=== PATIENT | male | born 1960 | race Caucasian/White ===

== ENCOUNTER 2016-12-02 00:17 | Emergency (ER) | payer OTHER ==
[~2016-12-02] VITALS: Ht 167.6 cm; Wt 78.0 kg
[~2016-12-02 00:17] MED LIST: ALBUAER3 INH; CYCL1TAB29 PO; MEDR4PAK PO; MOTR200T4 PO; SPIRCAP INH
[2016-12-02 00:19] VITALS: BP 130/72; PULSE 69; RESP 16; TEMP 98.6; O2SAT 97
[2016-12-02] MEDS ORDERED: QUET400XR PO (01:09)
[2016-12-02] MEDS ORDERED: QUET200XR PO (01:09)
[2016-12-02 01:24] LABS: AUTOMATED NEUTROPHIL # 8.3 TH/MM3 (1.8-7.7); BASOPHIL # 0.1 TH/MM3 (0-0.2); BASOPHIL % 1.1 % (0.0-2.0); EOSINOPHIL # 0.2 TH/MM3 (0-0.4); EOSINOPHIL % 1.6 % (0.0-4.0); HEMO FLAGS DIFF FINAL; LYMPH % 27.5 % (9.0-44.0); LYMPHOCYTE # 3.5 TH/MM3 (1.0-4.8); MEAN CELL VOLUME 87.3 FL (80.0-100.0); MEAN CORPUSCULAR HEMOGLOBIN 30.2 PG (27.0-34.0); MEAN CORPUSCULAR HGB CONC 34.7 % (32.0-36.0); MONO % 5.5 % (0.0-8.0); NEUT % 64.3 % (16.0-70.0); PLATELET COUNT 246 TH/MM3 (150-450); RED CELL DISTRIBUTION WIDTH 14.1 % (11.6-17.2); WHITE BLOOD COUNT 12.9 TH/MM3 (4.0-11.0)
[2016-12-02 01:27] LABS: BACTERIA, URINE RARE /hpf; BLOOD, URINE NEG (NEG); COMMENT (UR) CULT NOT INDICATED; CULTURE IF INDICATED CULT NOT INDICATED; GLUCOSE,URINE NEG (NEG); KETONE, URINE NEG (NEG); NITRITE,URINE NEG (NEG); URINE COLOR LIGHT-YELLOW (YELLW/STRAW)
[2016-12-02 01:39] LABS: ALT (GPT) 14 U/L (12-78); ANION GAP 9 MEQ/L (5-15); AST (GOT) 8 U/L (15-37); BICARBONATE 26.4 MEQ/L (21.0-32.0); BLOOD UREA NITROGEN 9 MG/DL (7-18); CHLORIDE 104 MEQ/L (98-107); GLOMERULAR FILTRATION RATE 109 ML/MIN (>89); POTASSIUM 3.6 MEQ/L (3.5-5.1); SODIUM (NA) 139 MEQ/L (136-145)
[2016-12-02 01:41] LABS: ALKALINE PHOSPHATASE 96 U/L (45-117); TOTAL BILIRUBIN ADULT 0.4 MG/DL (0.2-1.0)
--- NOTE | 2016-12-02 01:42 | PD ---
HPI Chief Complaint: Abdominal Pain Time Seen by Provider: 01:01 Travel History International Travel<30 days: No Contact w/Intl Traveler<30days: No Traveled to known affect area: No History of Present Illness HPI So 56-year-old man presents emergent from sharp lower abdominal pain. States is been worse over the past several days. He states he is stinging when he urinates sometimes has trouble going to the bathroom when he urinates. Denies any vomiting but has had nausea, is also had some chills but no definite fevers. Bowel movements are somewhat irregular, but hasn't had any real significant change. Patient also had 2 episodes of hematuria. He does have a history of some nocturia, likely voiding, and difficulty starting and hesitancy. He's never had a urinary tract infection before no history of kidney stones or prostate problems. History Past Medical History Narrative Medical COPD Diabetes Tetanus Vaccination: Unknown Influenza Vaccination: No Social History Alcohol Use: No Tobacco Use: Yes (4 cigs per day) Allergies-Medications (Allergen,Severity, Reaction): Coded Allergies: Morphine (Verified Allergy, Severe, Nausea/Vomiting, 09/22/16) Latex (Verified Adverse Reaction, Severe, Rash, 09/22/16) Reported Meds & Prescriptions Reported Meds & Active Scripts Active Proair Hfa 8.5 GM Inh (Albuterol Sulfate) 90 Mcg/Act Aer 2 Puff INH Q4-6H PRN 108 mcg/actuation Reported Seroquel XR (Quetiapine Fumarate) 400 Mg Tab 400 Mg PO HS Seroquel XR (Quetiapine Fumarate) 200 Mg Tab 200 Mg PO DAILY Review of Systems Except as stated in HPI: all other systems reviewed are Neg Physical Exam Narrative GENERAL: Well-appearing 56-year-old man, no acute distress. SKIN: Focused skin assessment warm/dry. HEAD: Atraumatic. Normocephalic. EYES: Pupils equal and round. No scleral icterus. No injection or drainage. ENT: No nasal bleeding or discharge. Mucous membranes pink and moist. NECK: Trachea midline. No JVD. CARDIOVASCULAR: Regular rate and rhythm. No murmur appreciated. RESPIRATORY: No accessory muscle use. Clear to auscultation. Breath sounds equal bilaterally. GASTROINTESTINAL: Abdomen is flat and soft. Minimal lower abdominal tenderness. MUSCULOSKELETAL: No obvious deformities. No clubbing. No cyanosis. No edema. NEUROLOGICAL: Awake and alert. No obvious cranial nerve deficits. Motor grossly within normal limits. Normal speech. Data Data Last Documented VS Vital Signs Date Time Temp Pulse Resp B/P Pulse Ox O2 Delivery O2 Flow Rate FiO2 12/02/16 00:19 98.6 69 16 130/72 97 Orders Complete Blood Count With Diff (12/02/16 01:09) Comprehensive Metabolic Panel (12/02/16 01:09) Urinalysis - C+S If Indicated (12/02/16 01:09) Iv Access Insert/Monitor (12/02/16 01:09) Ed Poc Ultrasound (12/02/16 ) Labs Laboratory Tests Test 12/02/16 12/02/16 01:00 01:16 Urine Color LIGHT-YELLOW Urine Turbidity CLEAR Urine pH 6.0 Urine Specific [place] 1.003 Urine Protein NEG mg/dL Urine Glucose (UA) NEG mg/dL Urine Ketones NEG mg/dL Urine Occult Blood NEG Urine Nitrite NEG Urine Bilirubin NEG Urine Urobilinogen LESS THAN 2.0 MG/DL Urine Leukocyte Esterase NEG Urine RBC LESS THAN 1 /hpf Urine WBC 1 /hpf Urine Bacteria RARE /hpf Microscopic Urinalysis Comment CULT NOT INDICATED White Blood Count 12.9 TH/MM3 Red Blood Count 4.70 MIL/MM3 Hemoglobin 14.2 GM/DL Hematocrit 41.0 % Mean Corpuscular Volume 87.3 FL Mean Corpuscular Hemoglobin 30.2 PG Mean Corpuscular Hemoglobin 34.7 % Concent Red Cell Distribution Width 14.1 % Platelet Count 246 TH/MM3 Mean Platelet Volume 8.5 FL Neutrophils (%) (Auto) 64.3 % Lymphocytes (%) (Auto) 27.5 % Monocytes (%) (Auto) 5.5 % Eosinophils (%) (Auto) 1.6 % Basophils (%) (Auto) 1.1 % Neutrophils # (Auto) 8.3 TH/MM3 Lymphocytes # (Auto) 3.5 TH/MM3 Monocytes # (Auto) 0.7 TH/MM3 Eosinophils # (Auto) 0.2 TH/MM3 Basophils # (Auto) 0.1 TH/MM3 CBC Comment DIFF FINAL Differential Comment Sodium Level 139 MEQ/L Potassium Level 3.6 MEQ/L Chloride Level 104 MEQ/L Carbon Dioxide Level 26.4 MEQ/L Anion Gap 9 MEQ/L Blood Urea Nitrogen 9 MG/DL Creatinine 0.74 MG/DL Estimat Glomerular Filtration 109 ML/MIN Rate Random Glucose 86 MG/DL Calcium Level 8.9 MG/DL Aspartate Amino Transf 8 U/L (AST/SGOT) Alanine Aminotransferase 14 U/L (ALT/SGPT) Albumin 3.7 GM/DL MDM Medical Decision Making Medical Screen Exam Complete: Yes Emergency Medical Condition: Yes Interpretation(s) LABS: CBC is remarkable for mild leukocytosis. CMP is unremarkable. UA is negative Differential Diagnosis Obstructive uropathy, malignancy, hematuria, infection, other Narrative Course Medical decision-making 56 human presents to the emergency Department with what sounds like hematuria and lower abdominal discomfort. He looks well. Bedside ultrasound shows no evidence of incomplete voiding. Bladder was a little bit thick but was also completely decompressed. Patient likely close outpatient follow-up with urologist. Diagnosis Primary Impression: Hematuria Additional Impression: Abdominal pain Additional Instructions: Take Tylenol as needed for abdominal pain. Follow-up with your primary doctor today this week for repeat evaluation. He probably need further evaluation by urologist evaluate for any evidence of bleeding. Med/Other Pt SpecificInfo: No Change to Meds Disposition: 01 DISCHARGE HOME Condition: Stable Manas Rojas MD Dec 02, 2016 01:42
== END 2016-12-02 02:01 | disposition home or self-care (01) ==
LOC: NEPE 00:17
DX: R31.9 Hematuria, unspecified (principal); R10.9 Unspecified abdominal pain; D72.829 Elevated white blood cell count, unspecified; J44.9 Chronic obstructive pulmonary disease, unspecified; E11.9 Type 2 diabetes mellitus without complications; F17.210 Nicotine dependence, cigarettes, uncomplicated; Z79.899 Other long term (current) drug therapy; Z88.5 Allergy status to narcotic agent
CPT/HCPCS: 80053; 81001; 85025; 99284

== ENCOUNTER 2016-12-03 13:30 | Emergency (ER) | payer OTHER ==
[~2016-12-03] VITALS: Ht 167.6 cm; Wt 80.0 kg
[~2016-12-03 13:30] MED LIST changes: -CYCL1TAB29 PO; -MEDR4PAK PO; -MOTR200T4 PO; +QUET200XR PO; +QUET400XR PO; -SPIRCAP INH
[2016-12-03 14:14] VITALS: BP 135/80; PULSE 111; RESP 19; O2SAT 97
[2016-12-03 14:20] VITALS: BP 135/80; PULSE 111; RESP 19; O2SAT 96
--- NOTE | 2016-12-03 14:22 | PD ---
HPI Chief Complaint: Psychiatric Symptoms Time Seen by Provider: 14:21 Travel History International Travel<30 days: No Contact w/Intl Traveler<30days: No Traveled to known affect area: No History of Present Illness HPI 56-year-old male with PMH of COPD presents to the ED under Bergeron act for psychiatric evaluation. According to the Bergeron act paperwork the patient called the pharmacy today asking how much Seroquel would be fatal. Additional statements made the pharmacist suspect that the patient was suicidal. The police were called and the patient was found to be in possession of 2 vials of ~ 50 pills of Seroquel. On presentation the patient denies suicidal ideation. He states that he takes 50 mg Seroquel in the morning and 300 mg at night. He states that last month he had accidentally taken more than prescribed and was worried that he may have done the same this month. He states that he was calling the pharmacist to ensure that he had not overdosed. He states that he is depressed but he has made significant changes in his life and feels more positive these days. He states that he is living in a sober house, denies alcohol or drug use. He states that he has a friend who was getting out of the hospital after a significant accident and is looking forward to seeing this friend as well as visiting family in [place] in 2 weeks. The patient was just seen yesterday with concern for hematuria. He states that he's been drinking plenty of fluids and this has nearly resolved. He denies other somatic complaints. PFSH Past Medical History Asthma: Yes Depression: Yes (manic depression) Heart Rhythm Problems: No Cardiac Catheterization: Yes (x 2) Cardiovascular Problems: Yes (CHEST PAIN, CATHS X2) High Cholesterol: Yes Congestive Heart Failure: No COPD: Yes Diabetes: Yes Diminished Hearing: No Hypertension: Yes Respiratory: Yes (COPD) Tetanus Vaccination: Never Vaccinated Past Surgical History Appendectomy: Yes Coronary Artery Bypass Graft: No Oral Surgery: Yes Tonsillectomy: Yes Social History Alcohol Use: No Tobacco Use: Yes (4 cigs per day) Substance Use: No Allergies-Medications (Allergen,Severity, Reaction): Coded Allergies: Morphine (Verified Allergy, Severe, Nausea/Vomiting, 12/03/16) Latex (Verified Adverse Reaction, Severe, Rash, 12/03/16) Reported Meds & Prescriptions Reported Meds & Active Scripts Active Proair Hfa 8.5 GM Inh (Albuterol Sulfate) 90 Mcg/Act Aer 2 Puff INH Q4-6H PRN 108 mcg/actuation Reported Seroquel XR (Quetiapine Fumarate) 400 Mg Tab 400 Mg PO HS Seroquel XR (Quetiapine Fumarate) 200 Mg Tab 200 Mg PO DAILY Review of Systems Except as stated in HPI: all other systems reviewed are Neg Physical Exam Narrative GENERAL: Well-nourished, well-developed white male in no acute distress. PSYCHIATRIC: No delusional thought processes. No hallucinations. Future oriented. Appropriately interactive. SKIN: Focused skin assessment warm/dry. HEAD: Normocephalic. EYES: No scleral icterus. No injection or drainage. PERRLA. NECK: Supple, trachea midline. No JVD or lymphadenopathy. CARDIOVASCULAR: Regular rate and rhythm without murmurs, gallops, or rubs. RESPIRATORY: Breath sounds equal and coarse bilaterally. No accessory muscle use. GASTROINTESTINAL: Abdomen soft, non-tender, nondistended. Active bowel sounds. MUSCULOSKELETAL: No cyanosis, or edema. Ambulatory with normal gait. BACK: Nontender without obvious deformity. No CVA tenderness. Data Data Last Documented VS Vital Signs Date Time Temp Pulse Resp B/P Pulse Ox O2 Delivery O2 Flow Rate FiO2 12/03/16 15:35 101 19 130/85 98 12/03/16 14:14 Room Air Orders Psych Screen (12/03/16 14:22) [facility] Medical Decision Making Medical Screen Exam Complete: Yes Emergency Medical Condition: Yes Medical Record Reviewed: Yes Differential Diagnosis Adjustment disorder versus anxiety versus bipolar versus depression versus dementia versus electrolyte disorder versus malingering versus mood disorder versus ODD versus psychosis versus PTSD versus schizophrenia versus schizoaffective disorder versus substance-induced mood disorder versus other Narrative Course 56-year-old male with PMH of COPD presents to the ED under Bergeron act for psychiatric evaluation. According to the Bergeron act paperwork the patient called the pharmacy today asking how much Seroquel would be fatal. This made the pharmacist suspect that the patient was suicidal. The police were called and the patient was found to be in possession of 2 vials of ~50 pills of Seroquel. On presentation the patient denies SI. He states that he takes 50 mg Seroquel in the morning and 300 mg at night. He states that last month he had accidentally taken more than prescribed and was worried that he may have done the same this month. He states that he called the pharmacist to ensure that he had not overdosed. H endorses depressed, but states that he feels more positive these days. He states that he is living in a sober house, denies alcohol or drug use. He is future oriented, plans to see a friend who has been hospitalized and family in the upcoming weeks. The patient was just seen yesterday with concern for hematuria. He states that he's been drinking plenty of fluids and this has nearly resolved. He denies other somatic complaints. Vitals reviewed. Exam unremarkable. Reviewed the labs from yesterday. I feel this patient could likely be discharged. I discussed the patient with Dr. Sarabia , he evaluated the patient and lifted the Bergeron act. Patient counseled to use a divided pill case for future doses of Seroquel. The patient is stable and discharged home. Diagnosis Primary Impression: Encounter for medical screening examination Referrals: Primary Care Physician Psychiatrist Additional Instructions: Resume at home medications as prescribed. Follow-up with your psychiatrist and primary care provider as discussed. Return to the ED for any urgent or emergent medical condition. Disposition: 01 DISCHARGE HOME Condition: Stable Nory Carrero Dec 03, 2016 14:22
--- NOTE | 2016-12-03 15:09 | PD ---
Data Data Last Documented VS Vital Signs Date Time Temp Pulse Resp B/P Pulse Ox O2 Delivery O2 Flow Rate FiO2 12/03/16 15:35 101 19 130/85 98 12/03/16 14:14 Room Air Orders Psych Screen (12/03/16 14:22) MDM Supervised Visit with CATHERINE: Yes Narrative Course Patient seen and examined by me in addition to Nory BANGURA. Nory has asked me to examine the patient for possible left Bergeron act. Patient was examined by me, his history is that he called the pharmacy asking how much of his medication would be lethal because he had some confusion last week about the prescribed dose of this medication. From a toxicologic standpoint he is not having any symptoms of overdose. The patient states that he is planning a vacation and is adamantly denying any suicidal or homicidal ideation at this time. He states this was clearly a misunderstanding and he wanted to make sure that he was not hurting himself. Ultimately the person he talked to over the phone call 911 the patient was placed under Bergeron act. The patient is not a threat to himself, he is not greatly disabled and therefore does not meet Bergeron act criteria at this time. After our discussion the patient is grateful would like to go home. I lifted his Bergeron act and he will be discharged. Diagnosis Primary Impression: Encounter for medical screening examination Referrals: Primary Care Physician Psychiatrist Additional Instruction: Resume at home medications as prescribed. Follow-up with your psychiatrist and primary care provider as discussed. Return to the ED for any urgent or emergent medical condition. Disposition: 01 DISCHARGE HOME Condition: Stable Tayo Sarabia MD Dec 03, 2016 15:09
[2016-12-03 15:35] VITALS: BP 130/85
== END 2016-12-03 15:36 | disposition home or self-care (01) ==
LOC: NEPD 13:30
DX: J44.9 Chronic obstructive pulmonary disease, unspecified (principal); J45.909 Unspecified asthma, uncomplicated; E78.00 Pure hypercholesterolemia, unspecified; E11.9 Type 2 diabetes mellitus without complications; I10 Essential (primary) hypertension; F17.210 Nicotine dependence, cigarettes, uncomplicated; Z79.899 Other long term (current) drug therapy
CPT/HCPCS: 99283

== ENCOUNTER 2016-12-09 20:13 | Emergency (ER) | payer OTHER ==
[~2016-12-09] VITALS: Ht 167.6 cm; Wt 78.0 kg
[2016-12-09 20:15] VITALS: BP 130/76; PULSE 95; RESP 16; TEMP 98.8; O2SAT 97
[2016-12-09] MEDS ORDERED: BACI28.3 TOPICAL (22:09)
[2016-12-09] MEDS ORDERED: CEPH-460 PO (22:09)
[2016-12-09] MEDS ORDERED: TETANUS/DIPHTHERIA TOXOID ADULT 0.5 ML VIAL IM ONE (22:15)
[2016-12-09] MEDS ORDERED: CEPHALEXIN MONOHYDRATE 500 MG CAP PO ONE (22:15)
[2016-12-09] MEDS ORDERED: BACITRACIN/POLYMYXIN B 15 GM TUBE TOPICAL ONE (22:15)
--- NOTE | 2016-12-09 22:21 | PD ---
HPI Chief Complaint: Injury Time Seen by Provider: 22:00 Travel History International Travel<30 days: No Contact w/Intl Traveler<30days: No Traveled to known affect area: No History of Present Illness HPI This is a 56-year-old male presents for evaluation of maceration and blisters on the feet. The patient reports that he is currently homeless. 3 days ago it rained very hard and his only pair of shoes and socks became soaked. Because of his homeless status he has had to walk around with his shoes and socks since then and is feet have become macerated and irritated. He developed blisters on the plantar aspect of his toes and both forefoot's. He has had pain associated with this. The pain is constant, burning, worse when walking. He has no other complaints at this time. PFSH Past Medical History Asthma: Yes Depression: Yes (manic depression) Heart Rhythm Problems: No Cardiac Catheterization: Yes (x 2) Cardiovascular Problems: Yes High Cholesterol: Yes Congestive Heart Failure: No COPD: Yes Diabetes: Yes Patient Takes Glucophage: No Diminished Hearing: No Hypertension: Yes Respiratory: Yes Tetanus Vaccination: Unknown Influenza Vaccination: No Past Surgical History Appendectomy: Yes Coronary Artery Bypass Graft: No Oral Surgery: Yes Tonsillectomy: Yes Social History Alcohol Use: No (QUITS 7 MONTHS AGO) Tobacco Use: Yes (1 PPD) Substance Use: No Allergies-Medications (Allergen,Severity, Reaction): Coded Allergies: Morphine (Verified Allergy, Severe, Nausea/Vomiting, 12/09/16) Latex (Verified Adverse Reaction, Severe, Rash, 12/09/16) Reported Meds & Prescriptions Reported Meds & Active Scripts Active Keflex (Cephalexin) 500 Mg Capsule 500 Mg PO Q8H 7 Days Polysporin Topical (Bacitracin-Polymyxin B Topical) 500-10,000 Unit/Gm Oint 1 Applic TOPICAL DIRECTED Proair Hfa 8.5 GM Inh (Albuterol Sulfate) 90 Mcg/Act Aer 2 Puff INH Q4-6H PRN 108 mcg/actuation Reported Seroquel XR (Quetiapine Fumarate) 400 Mg Tab 400 Mg PO HS Seroquel XR (Quetiapine Fumarate) 200 Mg Tab 200 Mg PO DAILY Review of Systems Except as stated in HPI: all other systems reviewed are Neg Physical Exam Narrative GENERAL: Well-developed well-nourished male in no acute distress SKIN: Warm and dry. There is some maceration noted on the plantar aspect of both feet. There is some excoriation on the plantar aspect of the toes, worse on the left and right fifth toes. There is no erythema or foul-smelling drainage. There is no ulceration. There is no necrotic tissue or erythematous or indurated tissue. HEAD: Atraumatic. Normocephalic. EYES: Pupils equal and round. No scleral icterus. No injection or drainage. ENT: No nasal bleeding or discharge. Mucous membranes pink and moist. NECK: Trachea midline. No JVD. CARDIOVASCULAR: Regular rate and rhythm. No murmur appreciated. RESPIRATORY: No accessory muscle use. Clear to auscultation. Breath sounds equal bilaterally. GASTROINTESTINAL: Abdomen soft, non-tender, nondistended. Hepatic and splenic margins not palpable. MUSCULOSKELETAL: No obvious deformities. Skin as noted above with no bony deformities. Distal sensation is preserved. 2+ dorsalis pedis pulse bilaterally. NEUROLOGICAL: Awake and alert. No obvious cranial nerve deficits. Motor grossly within normal limits. Normal speech. PSYCHIATRIC: Appropriate mood and affect; insight and judgment normal. Data Data Last Documented VS Vital Signs Date Time Temp Pulse Resp B/P Pulse Ox O2 Delivery O2 Flow Rate FiO2 12/09/16 21:43 Room Air 12/09/16 20:15 98.8 95 16 130/76 97 Orders Bacitracin/Polymyxin Oint (Polysporin Oi (12/09/16 22:15) Wound Care (12/09/16 22:08) Tetanus/Diphtheria Tox Adult (Tetanus/Di (12/09/16 22:15) Cephalexin (Keflex) (12/09/16 22:15) [facility] Medical Decision Making Medical Screen Exam Complete: Yes Emergency Medical Condition: Yes Medical Record Reviewed: Yes Differential Diagnosis Blisters, skin maceration, cellulitis, peripheral vascular disease, intermittent claudication, necrotizing fasciitis, osteomyelitis, stress fractures Narrative Course This is a 56-year-old homeless individual who developed blisters and maceration of the skin plantar aspect of both feet after his shoes became very wet from rain. Examination reveals no evidence of infectious process. He does have some skin maceration and tenderness on the plantar aspect of both feet. Local wound care will be provided. He'll be given a new dry. Socks. Tetanus status will be updated. He'll be given prescription for Polysporin Keflex. It was recommended that he keep his feet is clean and dry as possible, air dry as much as possible, recommended not walking around and felt shoes or socks, not sleeping with shoes or socks on. He is stable for discharge. Diagnosis Primary Impression: Skin maceration Additional Impression: Blister of foot Qualified Code: S90.829A - Blister of foot, unspecified laterality, initial encounter Additional Instructions: As discussed, keeping your skin clean and dry as the primary way to allow the skin to heal. As much as possible to not wear any shoes or socks over the next several days to allow healing. Do not wear wet shoes or socks. Do not sleep with shoes and socks on. Wash twice daily gently with soap and water and apply antibiotic cream. Take the oral antibiotics as prescribed. Return for any emergent medical conditions. Med/Other Pt SpecificInfo: Prescription(s) given Scripts Cephalexin (Keflex)500 Mg [id number] Mg PO Q8H 7 Days Ref 0 Prov:Jessica Evangelista MD 12/09/16 Bacitracin-Polymyxin B Topical (Polysporin Topical)500-10,000 Unit/Gm Oint1 Applic TOPICAL DIRECTED #1 TUBE Ref 0 Prov:Jessica Evangelista MD 12/09/16 Disposition: 01 DISCHARGE HOME Condition: Stable Nikhil Mccollum Dec 09, 2016 22:21
== END 2016-12-09 23:05 | disposition home or self-care (01) ==
LOC: NEPE 20:13
DX: T69.022A Immersion foot, left foot, initial encounter (principal); T69.021A Immersion foot, right foot, initial encounter; S90.822A Blister (nonthermal), left foot, initial encounter; S90.821A Blister (nonthermal), right foot, initial encounter; E11.9 Type 2 diabetes mellitus without complications; I10 Essential (primary) hypertension; Y93.01 Activity, walking, marching and hiking; Z23 Encounter for immunization; Z59.0 Homelessness
CPT/HCPCS: 90471; 90714

== ENCOUNTER 2016-12-27 18:38 | Emergency (ER) | payer OTHER ==
[~2016-12-27] VITALS: Ht 167.6 cm; Wt 75.0 kg
[~2016-12-27 18:38] MED LIST changes: +BACI28.3 TOPICAL; +CEPH-460 PO
[2016-12-27 18:43] VITALS: BP 143/80; PULSE 86; RESP 20; TEMP 97.6; O2SAT 99
[2016-12-27] MEDS ORDERED: SODIUM CHLOR 0.9% 1000 ML INJ 1,000 ML IV SCH (19:24)
--- NOTE | 2016-12-27 19:27 | PD ---
HPI Chief Complaint: GI Complaint Time Seen by Provider: 19:18 Travel History International Travel<30 days: No Contact w/Intl Traveler<30days: No Traveled to known affect area: No History of Present Illness HPI Patient is a 56-year-old homeless male known to me from previous ER visits presents emergency Department with generalized abdominal cramping nausea vomiting and diarrhea for the past few days. Patient states she's living outdoors and 2 gentleman he lives with have similar symptoms. Denies any bilious or bloody vomiting, denies any bloody or melena stools. Denies any fevers. States symptoms are moderate and gradually worsening. PFSH Past Medical History Asthma: Yes Depression: Yes (manic depression) Heart Rhythm Problems: No Cardiac Catheterization: Yes (x 2) Cardiovascular Problems: Yes High Cholesterol: Yes Congestive Heart Failure: No COPD: Yes Diabetes: Yes Patient Takes Glucophage: No Diminished Hearing: No Hypertension: Yes Respiratory: Yes (ASTHMA/COPD) Tetanus Vaccination: < 5 Years Influenza Vaccination: No Past Surgical History Appendectomy: Yes Coronary Artery Bypass Graft: No Oral Surgery: Yes Tonsillectomy: Yes Social History Alcohol Use: No (QUITS 7 MONTHS AGO) Tobacco Use: Yes (1 PPD) Substance Use: No Allergies-Medications (Allergen,Severity, Reaction): Coded Allergies: Morphine (Verified Allergy, Severe, Nausea/Vomiting, 12/27/16) Latex (Verified Adverse Reaction, Severe, Rash, 12/27/16) Reported Meds & Prescriptions Reported Meds & Active Scripts Active Proair Hfa 8.5 GM Inh (Albuterol Sulfate) 90 Mcg/Act Aer 2 Puff INH Q4-6H PRN 108 mcg/actuation Reported Seroquel XR (Quetiapine Fumarate) 400 Mg Tab 400 Mg PO HS Seroquel XR (Quetiapine Fumarate) 200 Mg Tab 200 Mg PO DAILY Review of Systems Except as stated in HPI: all other systems reviewed are Neg Physical Exam Narrative GENERAL: Well-developed well-nourished, no obvious distress. SKIN: Focused skin assessment warm/dry. HEAD: Atraumatic. Normocephalic. EYES: Pupils equal and round. No scleral icterus. No injection or drainage. ENT: No nasal bleeding or discharge. Mucous membranes pink and moist. NECK: Trachea midline. No JVD. CARDIOVASCULAR: Regular rate and rhythm. No murmur appreciated. RESPIRATORY: No accessory muscle use. Clear to auscultation. Breath sounds equal bilaterally. GASTROINTESTINAL: Abdomen soft, non-tender, nondistended. Hepatic and splenic margins not palpable. No rebound no percussive tenderness, no CVA tenderness. MUSCULOSKELETAL: No obvious deformities. No clubbing. No cyanosis. No edema. NEUROLOGICAL: Awake and alert. No obvious cranial nerve deficits. Motor grossly within normal limits. Normal speech. PSYCHIATRIC: Appropriate mood and affect; insight and judgment normal. Data Data Last Documented VS Vital Signs Date Time Temp Pulse Resp B/P Pulse Ox O2 Delivery O2 Flow Rate FiO2 12/27/16 21:54 63 18 169/70 99 Room Air 12/27/16 18:43 97.6 Orders Complete Blood Count With Diff (12/27/16:24) Comprehensive Metabolic Panel (12/27/16:24) Lipase (12/27/16:24) Prothrombin Time / Inr (Pt) (12/27/16:24) Act Partial Throm Time (Ptt) (12/27/16:24) Urinalysis - C+S If Indicated (12/27/16 19:24) Iv Access Insert/Monitor (12/27/16 19:24) Ecg Monitoring (12/27/16:24) Oximetry (12/27/16:24) Ondansetron Inj (Zofran Inj) (12/27/16 19:30) Sodium Chlor 0.9% 1000 Ml Inj (Ns 1000 M (12/27/16 19:24) Sodium Chloride 0.9% Flush (Ns Flush) (12/27/16 19:30) Electrocardiogram (12/27/16 19:24) Ketorolac Inj (Toradol Inj) (12/27/16 19:30) Troponin I (12/27/16 19:24) Ckmb (Isoenzyme) Profile (12/27/16:24) CKMB (12/27/16 19:20) CKMB% (12/27/16 19:20) Labs Laboratory Tests Test 12/27/16 12/27/16 19:20 19:41 White Blood Count 9.4 TH/MM3 Red Blood Count 4.85 MIL/MM3 Hemoglobin 14.4 GM/DL Hematocrit 42.8 % Mean Corpuscular Volume 88.2 FL Mean Corpuscular Hemoglobin 29.7 PG Mean Corpuscular Hemoglobin 33.6 % Concent Red Cell Distribution Width 13.8 % Platelet Count 269 TH/MM3 Mean Platelet Volume 8.4 FL Neutrophils (%) (Auto) 68.0 % Lymphocytes (%) (Auto) 23.4 % Monocytes (%) (Auto) 5.5 % Eosinophils (%) (Auto) 2.4 % Basophils (%) (Auto) 0.7 % Neutrophils # (Auto) 6.4 TH/MM3 Lymphocytes # (Auto) 2.2 TH/MM3 Monocytes # (Auto) 0.5 TH/MM3 Eosinophils # (Auto) 0.2 TH/MM3 Basophils # (Auto) 0.1 TH/MM3 CBC Comment DIFF FINAL Differential Comment Prothrombin Time 10.5 SEC Prothromb Time International 1.0 RATIO Ratio Activated Partial 28.7 SEC Thromboplast Time Sodium Level 137 MEQ/L Potassium Level 3.2 MEQ/L Chloride Level 104 MEQ/L Carbon Dioxide Level 25.6 MEQ/L Anion Gap 7 MEQ/L Blood Urea Nitrogen 7 MG/DL Creatinine 0.97 MG/DL Estimat Glomerular Filtration 80 ML/MIN Rate Random Glucose 73 MG/DL Calcium Level 8.7 MG/DL Total Bilirubin 0.7 MG/DL Aspartate Amino Transf 14 U/L (AST/SGOT) Alanine Aminotransferase 12 U/L (ALT/SGPT) Alkaline Phosphatase 120 U/L Total Creatine Kinase 131 U/L Creatine Kinase MB 1.0 NG/ML Troponin I LESS THAN 0.02 NG/ML Total Protein 7.3 GM/DL Albumin 3.7 GM/DL Lipase 154 U/L Urine Color YELLOW Urine Turbidity CLEAR Urine pH 5.5 Urine Specific [place] 1.016 Urine Protein TRACE mg/dL Urine Glucose (UA) NEG mg/dL Urine Ketones NEG mg/dL Urine Occult Blood NEG Urine Nitrite NEG Urine Bilirubin NEG Urine Urobilinogen 2.0 MG/DL Urine Leukocyte Esterase NEG Urine RBC LESS THAN 1 /hpf Urine WBC 1 /hpf Urine Squamous Epithelial 1 /hpf Cells Urine Mucus FEW /lpf Microscopic Urinalysis Comment CULT NOT INDICATED MDM Medical Decision Making Medical Screen Exam Complete: Yes Emergency Medical Condition: Yes Interpretation(s) EKG shows normal sinus rhythm normal axis normal R-wave progression. No concerning ST segment changes. Intervals within normal limits. This normal EKG. Differential Diagnosis Gastritis, gastritis, dehydration, electrolyte abnormality, acute abdomen unlikely. Narrative Course Patient roomed emergency department, the fact that he has 2 close contacts similar symptoms suggest infectious etiology. He appears well and his labs are reassuring. Given hydration as well as Zofran. Recommend following of the [facility]/his primary care physician. There is no indication for further workup at this time. He stable for discharge. Diagnosis Primary Impression: Abdominal pain Disposition: DISCHARGE HOME Condition: Stable Tayo Sarabia MD Dec 27, 2016 19:27
[2016-12-27] MEDS ORDERED: SODIUM CHLORIDE 0.9% FLUSH 10 ML FLUSH IV FLUSH PRN (19:30)
[2016-12-27] MEDS ORDERED: ONDANSETRON HCL 4 MG/2 ML VIAL IVP ONE (19:30)
[2016-12-27] MEDS ORDERED: KETOROLAC TROMETHAMINE 30 MG/ML (IVP) VIAL IVP ONE (19:30)
[2016-12-27 19:58] LABS: AUTOMATED NEUTROPHIL # 6.4 TH/MM3 (1.8-7.7); BASOPHIL # 0.1 TH/MM3 (0-0.2); BASOPHIL % 0.7 % (0.0-2.0); EOSINOPHIL # 0.2 TH/MM3 (0-0.4); EOSINOPHIL % 2.4 % (0.0-4.0); HEMATOCRIT 42.8 % (39.0-51.0); HEMO FLAGS DIFF FINAL; LYMPH % 23.4 % (9.0-44.0); LYMPHOCYTE # 2.2 TH/MM3 (1.0-4.8); MEAN CELL VOLUME 88.2 FL (80.0-100.0); MEAN CORPUSCULAR HEMOGLOBIN 29.7 PG (27.0-34.0); MEAN CORPUSCULAR HGB CONC 33.6 % (32.0-36.0); MONO % 5.5 % (0.0-8.0); PLATELET COUNT 269 TH/MM3 (150-450); RED BLOOD COUNT 4.85 MIL/MM3 (4.50-5.90); RED CELL DISTRIBUTION WIDTH 13.8 % (11.6-17.2); WHITE BLOOD COUNT 9.4 TH/MM3 (4.0-11.0)
[2016-12-27 20:07] LABS: APTT (PATIENT) 28.7 SEC (24.3-30.1); PROTHROMBIN TIME - PATIENT 10.5 SEC (9.8-11.6)
[2016-12-27 20:10] LABS: BLOOD, URINE NEG (NEG); COMMENT (UR) CULT NOT INDICATED; CULTURE IF INDICATED CULT NOT INDICATED; GLUCOSE,URINE NEG (NEG); KETONE, URINE NEG (NEG); MUCUS URINE FEW /lpf (OCC); NITRITE,URINE NEG (NEG); PH, URINE 5.5 (5.0-8.5); SQUAMOUS EPITHELIAL CELL URINE 1 /hpf (0-5); URINE COLOR YELLOW (YELLW/STRAW)
[2016-12-27 20:10] LABS: ANION GAP 7 MEQ/L (5-15); AST (GOT) 14 U/L (15-37); BICARBONATE 25.6 MEQ/L (21.0-32.0); BLOOD UREA NITROGEN 7 MG/DL (7-18); CHLORIDE 104 MEQ/L (98-107); GLOMERULAR FILTRATION RATE 80 ML/MIN (>89); POTASSIUM 3.2 MEQ/L (3.5-5.1); SODIUM (NA) 137 MEQ/L (136-145)
[2016-12-27 20:12] LABS: ALT (GPT) 12 U/L (12-78)
[2016-12-27 20:16] LABS: ALKALINE PHOSPHATASE 120 U/L (45-117); CREATINE KINASE 131 U/L (39-308); TOTAL BILIRUBIN ADULT 0.7 MG/DL (0.2-1.0)
[2016-12-27 21:54] VITALS: BP 169/70; PULSE 63; RESP 18; O2SAT 100; O2SAT 62; O2SAT 99
--- NOTE | 2016-12-28 12:28 | EKG ---
Date Performed: 12/27/2016 Time Performed: 19:41:48 PTAGE: 56 years EKG: Sinus rhythm NORMAL ECG PREVIOUS TRACING : 08/15/2016 01.24 Compared to prior tracing no significant change DOCTOR: John Farley Interpretating Date/Time 12/28/2016 12:24:44
== END 2016-12-27 22:38 | disposition home or self-care (01) ==
LOC: NEPC 18:38
DX: R10.84 Generalized abdominal pain (principal); R11.2 Nausea with vomiting, unspecified; R19.7 Diarrhea, unspecified; J45.909 Unspecified asthma, uncomplicated; F30.9 Manic episode, unspecified; E78.00 Pure hypercholesterolemia, unspecified; J44.9 Chronic obstructive pulmonary disease, unspecified; E11.9 Type 2 diabetes mellitus without complications; I10 Essential (primary) hypertension
CPT/HCPCS: 80053; 81001; 82550; 82552; 83690; 84484; 85025; 85610; 85730; 93005; 96374; 96375; 99284; J1885; J2405; J7030

== ENCOUNTER 2017-01-19 13:56 | Emergency (ER) | payer OTHER ==
[~2017-01-19] VITALS: Ht 167.6 cm; Wt 78.5 kg
[~2017-01-19 13:56] MED LIST changes: -BACI28.3 TOPICAL; -CEPH-460 PO
[2017-01-19 13:58] VITALS: BP 120/75; PULSE 95; RESP 20; TEMP 97.4; O2SAT 97
--- NOTE | 2017-01-19 15:10 | PD ---
HPI Chief Complaint: Pain: Acute or Chronic Time Seen by Provider: 15:00 Travel History International Travel<30 days: No Contact w/Intl Traveler<30days: No Traveled to known affect area: No History of Present Illness HPI 56-year-old male presents for evaluation of left hip and left knee pain. Unfortunately the patient is currently homeless. He reports that he was walking today when he fell, landing on his left leg. He is now having left knee and left hip pain which is aching, constant, worse walking. He already has chronic left knee pain and reports that he has had an MRI in the past which revealed a torn meniscus. He denies any other injuries and he has no other complaints at this time. [facility] Past Medical History Asthma: Yes Depression: Yes (manic depression) Heart Rhythm Problems: No Cardiac Catheterization: Yes (x 2) Cardiovascular Problems: Yes High Cholesterol: Yes Congestive Heart Failure: No COPD: Yes Diabetes: Yes Diminished Hearing: No Hypertension: Yes Respiratory: Yes (ASTHMA/COPD) Past Surgical History Appendectomy: Yes Coronary Artery Bypass Graft: No Oral Surgery: Yes Tonsillectomy: Yes Social History Alcohol Use: No (QUITS 7 MONTHS AGO) Tobacco Use: Yes (1 PPD) Substance Use: No Allergies-Medications (Allergen,Severity, Reaction): Coded Allergies: morphine (Unverified Allergy, Severe, Nausea/Vomiting, 12/30/16) latex (Unverified Adverse Reaction, Severe, Rash, 12/30/16) Reported Meds & Prescriptions Reported Meds & Active Scripts Active Proair Hfa 8.5 GM Inh (Albuterol Sulfate) 90 Mcg/Act Aer 2 Puff INH Q4-6H PRN 108 mcg/actuation Reported Seroquel XR (Quetiapine Fumarate) 400 Mg Tab 400 Mg PO HS Seroquel XR (Quetiapine Fumarate) 200 Mg Tab 200 Mg PO DAILY Review of Systems Except as stated in HPI: all other systems reviewed are Neg Physical Exam Narrative GENERAL: Well-developed well-nourished male in no acute distress SKIN: Warm and dry. No open wounds, no bruising, no soft tissue swelling HEAD: Atraumatic. Normocephalic. EYES: Pupils equal and round. No scleral icterus. No injection or drainage. ENT: No nasal bleeding or discharge. Mucous membranes pink and moist. NECK: Trachea midline. No JVD. CARDIOVASCULAR: Regular rate and rhythm. No murmur appreciated. RESPIRATORY: No accessory muscle use. Clear to auscultation. Breath sounds equal bilaterally. GASTROINTESTINAL: Abdomen soft, non-tender, nondistended. Hepatic and splenic margins not palpable. MUSCULOSKELETAL: No obvious deformities. Generalized tenderness to palpation to the lateral left hip and left knee joint. There is no deformity. There is no range of motion limitation. Distal pulses are intact. No tenderness to palpation to the back or neck. NEUROLOGICAL: Awake and alert. No obvious cranial nerve deficits. Motor grossly within normal limits. Normal speech. Data Data Last Documented VS Vital Signs Date Time Temp Pulse Resp B/P (MAP) Pulse Ox O2 Delivery O2 Flow Rate FiO2 01/19/17 13:58 97.4 95 20 120/75 (90) 97 Room Air Orders Orders Hip, Uni(Ap&Lat) W Ap Pelvis (01/19/17 ) Knee, Complete (4vws) (01/19/17 ) [facility] Medical Decision Making Medical Screen Exam Complete: Yes Emergency Medical Condition: Yes Medical Record Reviewed: Yes Differential Diagnosis Contusion, strain, sprain, fracture, bursitis, ligamentous disruption, meniscal disruption Narrative Course 56-year-old male presents after a fall with left hip and left knee pain. Physical examination is unremarkable. X-ray imaging of the pelvis, left hip and left knee were performed and they were all unremarkable. The patient is stable for discharge. Diagnosis Primary Impression: Left leg pain Additional Instructions: Take Tylenol or Motrin for discomfort per dosing instructions on the bottle. Avoid strenuous activity. Follow-up with primary care physician in one to 2 weeks. Return for any emergent medical conditions. Med/Other Pt SpecificInfo: No Change to Meds Disposition: 01 DISCHARGE HOME Condition: Stable Nikhil Mccollum Jan 19, 2017 15:10
--- NOTE | 2017-01-19 15:53 | RADRPT ---
EXAM DATE/TIME: 01/19/2017 15:23 [facility] COMPARISON: No previous studies available for comparison. INDICATIONS : Left hip pain after multiple falls today. MEDICAL HISTORY : Hypertension. SURGICAL HISTORY : Appendectomy. Total knee replacement, right. ENCOUNTER: Initial ACUITY: 1 day PAIN SCORE: 10/10 LOCATION: Left hip. FINDINGS: Examination of the left hip was performed with AP Pelvis. The primary and secondary trabecular patte rn of the femoral neck is intact. The hip joint is of normal width without significant sclerosis or bony hypertrophy. The acetabulum is grossly intact. CONCLUSION: Negative for fracture or dislocation. Follow up in 7-10 days is suggested if symptoms persist.. Wan Phillips MD FACR on January 19, 2017 at 15:51 Board Certified Radiologist. This report was verified electronically.
--- NOTE | 2017-01-19 15:54 | RADRPT ---
EXAM DATE/TIME: 01/19/2017 15:25 [facility] COMPARISON: No previous studies available for comparison. INDICATIONS : Left knee pain after multiple falls today. MEDICAL HISTORY : Hypertension. SURGICAL HISTORY : Appendectomy. Total knee replacement, right. ENCOUNTER: Initial ACUITY: 1 day PAIN SCORE: 10/10 LOCATION: Left knee. FINDINGS: Four view examination of the left knee demonstrates no evidence of fracture or dislocation. Bony min eralization is normal. The articular surfaces are intact. The suprapatellar soft tissues have a nor mal configuration. CONCLUSION: Negative for fracture or dislocation. Follow up in 7-10 days is suggested if symptoms persist. Wan Phillips MD FACR on January 19, 2017 at 15:51 Board Certified Radiologist. This report was verified electronically.
== END 2017-01-19 16:43 | disposition home or self-care (01) ==
LOC: NEPK 13:56
DX: M25.552 Pain in left hip (principal); M25.562 Pain in left knee
CPT/HCPCS: 73502; 73564; 99284

== ENCOUNTER 2017-01-25 00:28 | Emergency (ER) | payer OTHER ==
[~2017-01-25] VITALS: Ht 167.6 cm; Wt 75.0 kg
[2017-01-25 00:42] VITALS: BP 132/77; PULSE 69; RESP 18; TEMP 97.6; O2SAT 98
--- NOTE | 2017-01-25 01:29 | PD ---
HPI Chief Complaint: Pain: Acute or Chronic Time Seen by Provider: 01:19 Travel History International Travel<30 days: No Contact w/Intl Traveler<30days: No Traveled to known affect area: No History of Present Illness HPI 56-year-old male presents versus chronic for evaluation of bilateral feet pain. Patient is homeless and has been walking in wet shoes with wet socks. He has wrapped gauze around his feet and attempt to keep them dry however this is only held moisture in. Denies any new exposures. No fever or chills. They're painful and burning. He has no other symptoms to report. PFSH Past Medical History Asthma: Yes Depression: Yes (manic depression) Heart Rhythm Problems: No Cardiac Catheterization: Yes (x 2) Cardiovascular Problems: Yes High Cholesterol: Yes Congestive Heart Failure: No COPD: Yes Diminished Hearing: No Hypertension: Yes (HX OF) Respiratory: Yes (ASTHMA/COPD) Past Surgical History Appendectomy: Yes Coronary Artery Bypass Graft: No Oral Surgery: Yes (TOOTH REMOVED) Tonsillectomy: Yes Social History Alcohol Use: No (QUITS 7 MONTHS AGO) Tobacco Use: Yes (1 PPD) Substance Use: No Allergies-Medications (Allergen,Severity, Reaction): Coded Allergies: morphine (Unverified Allergy, Severe, Nausea/Vomiting, 01/25/17) latex (Unverified Adverse Reaction, Severe, Rash, 01/25/17) Reported Meds & Prescriptions Reported Meds & Active Scripts Active Lotrimin AF Powder [place] (Miconazole Topical) 2 % Aer 1 [place] TOPICAL BID 1 Days Proair Hfa 8.5 GM Inh (Albuterol Sulfate) 90 Mcg/Act Aer 2 Puff INH Q4-6H PRN 108 mcg/actuation Reported Seroquel XR (Quetiapine Fumarate) 400 Mg Tab 400 Mg PO HS Seroquel XR (Quetiapine Fumarate) 200 Mg Tab 200 Mg PO DAILY Review of Systems Except as stated in HPI: all other systems reviewed are Neg Physical Exam Narrative GENERAL: Unkempt male patient, no acute distress SKIN: Focused skin assessment warm/dry. Maceration of the plantar surface of the feet from midfoot distally. There is excoriation on the left fifth toe. No significant erythema. No edema. HEAD: Atraumatic. Normocephalic. EYES: Pupils equal and round. No scleral icterus. No injection or drainage. ENT: No nasal bleeding or discharge. Mucous membranes pink and moist. NECK: Trachea midline. No JVD. CARDIOVASCULAR: Regular rate and rhythm. No murmur appreciated. RESPIRATORY: No accessory muscle use. Clear to auscultation. Breath sounds equal bilaterally. MUSCULOSKELETAL: No obvious deformities. No clubbing. No cyanosis. No edema. NEUROLOGICAL: Awake and alert. No obvious cranial nerve deficits. Motor grossly within normal limits. Normal speech. Data Data Last Documented VS Vital Signs Date Time Temp Pulse Resp B/P (MAP) Pulse Ox O2 Delivery O2 Flow Rate FiO2 01/25/17 00:42 97.6 69 18 132/77 (95) 98 MDM Medical Decision Making Medical Screen Exam Complete: Yes Emergency Medical Condition: Yes Medical Record Reviewed: Yes Differential Diagnosis Skin maceration versus tinea pedis versus versus malingering Narrative Course 56-year-old male presents to the emergency department for evaluation of foot pain. Patient appears to have significant maceration of the bilateral feet. This is likely from excessive moisture. I have counseled the patient on importance of keeping them dry. He will also begin her prescription for Lotrimin spray powder. Patient given dry socks He agrees to return immediately with any acute worsening of symptoms. Diagnosis Primary Impression: Skin maceration Referrals: Assistant Tennis Professional Primary Care Physician Patient Instructions: Athlete's Foot (ED), General Instructions Additional Instructions: Keep your feet dry Do not wear wet socks Follow-up with a primary care provider See protective signal installer helper evaluation Return immediately with any acute worsening of symptoms. Scripts Miconazole Topical (Lotrimin AF Powder [place]) 2 % Aer 1 SPRAY TOPICAL BID for Fungal Infection for 1 Day, CAN 0 Refills Prov: Lashae Brewer 01/25/17 Disposition: 01 DISCHARGE HOME Condition: Stable Lashae Brewer Jan 25, 2017 01:29
[2017-01-25] MEDS ORDERED: LOTR2AER3 TOPICAL (01:53)
--- NOTE | 2017-01-25 02:07 | PD ---
Physical Exam Date Seen by Provider: Jan 25, 2017 Time Seen by Provider: 02:05 Data Data Last Documented VS Vital Signs Date Time Temp Pulse Resp B/P (MAP) Pulse Ox O2 Delivery O2 Flow Rate FiO2 01/25/17 00:42 97.6 69 18 132/77 (95) 98 MDM Medical Record Reviewed: Yes Supervised Visit with CATHERINE: No Differential Diagnosis Differential diagnosis: Tinea pedis, cellulitis, folliculitis, malingering Narrative Course Patient has tinea pedis. This is secondary to having persistent wet feet. Patient has been counseled on keeping his feet clean and dry and using Lamisil. Diagnosis Primary Impression: Tinea pedis of both feet Patient Instructions: General Instructions Additional Instruction: Rest. Elevation. keep the feet clean and dry. Lamisil AT. Follow-up with a medical doctor or a retail event and sales assistant in 1-2 weeks. Scripts Miconazole Topical (Lotrimin AF Powder [place]) 2 % Aer 1 SPRAY TOPICAL BID for Fungal Infection for 1 Day, CAN 0 Refills Prov: Lashae Brewer 01/25/17 Disposition: 01 DISCHARGE HOME Condition: Stable Luther Veras Jan 25, 2017 02:07
== END 2017-01-25 04:07 | disposition home or self-care (01) ==
LOC: NEPD 00:28
DX: B35.3 Tinea pedis (principal); Z59.0 Homelessness
CPT/HCPCS: 99283

== ENCOUNTER 2017-02-11 17:37 | Emergency (ER) | payer OTHER ==
[~2017-02-11] VITALS: Ht 167.6 cm; Wt 70.0 kg
[~2017-02-11 17:37] MED LIST changes: +LOTR2AER3 TOPICAL
[2017-02-11 17:40] VITALS: BP 117/73; PULSE 88; RESP 18; TEMP 97.8; O2SAT 98
== END 2017-02-11 19:56 | disposition left against medical advice (07) ==
LOC: NED 17:37
DX: Z04.1 Encounter for examination and observation following transport accident (principal); Z53.21 Procedure and treatment not carried out due to patient leaving prior to being seen by health care provider
CPT/HCPCS: 99281

== ENCOUNTER 2017-02-23 03:34 | Emergency (ER) | payer OTHER ==
[~2017-02-23] VITALS: Ht 167.6 cm; Wt 74.0 kg
[2017-02-23 03:35] VITALS: BP 131/85; PULSE 90; RESP 16; TEMP 98.5; O2SAT 99
--- NOTE | 2017-02-23 04:16 | PD ---
HPI Chief Complaint: Psychiatric Symptoms Time Seen by Provider: 03:50 Travel History International Travel<30 days: No Contact w/Intl Traveler<30days: No Traveled to known affect area: No History of Present Illness HPI Patient is a 56-year-old male presenting to emergency voluntarily for psychiatric evaluation. Patient reports a history of manic depression, he had been on Seroquel but stopped it stating he thought he felt better. Since June he saw very stressed out and prone to panic attacks. He states his mood swings go from being okay to angry to depressed. Patient states he is currently on disability due to rheumatoid arthritis, degenerative disc disease and COPD. He reports being homeless since May after friend and the friend's children kicked him out of the house. He also reports relationship issues with his girlfriend however he is still with her. Patient does receive disability checks. He denies any suicidal ideations, homicidal ideations or hallucinations. PFSH Past Medical History Asthma: Yes Depression: Yes (manic depression) Heart Rhythm Problems: No Cardiac Catheterization: Yes (x 2) High Cholesterol: Yes Congestive Heart Failure: No COPD: Yes Diminished Hearing: No Hypertension: Yes (HX OF) Respiratory: Yes (ASTHMA/COPD) Past Surgical History Appendectomy: Yes Coronary Artery Bypass Graft: No Oral Surgery: Yes (TOOTH REMOVED) Tonsillectomy: Yes Social History Alcohol Use: No (QUITS 7 MONTHS AGO) Tobacco Use: Yes (1 PPD) Substance Use: No Allergies-Medications (Allergen,Severity, Reaction): Coded Allergies: bee venom protein (honey bee) (Verified Allergy, Severe, Anaphylaxis, 02/23) morphine (Unverified Allergy, Severe, Nausea/Vomiting, 02/23/17) latex (Unverified Adverse Reaction, Severe, Rash, 02/23/17) Reported Meds & Prescriptions Reported Meds & Active Scripts Active Lotrimin AF Powder [place] (Miconazole Topical) 2 % Aer 1 [place] TOPICAL BID 1 Days Proair Hfa 8.5 GM Inh (Albuterol Sulfate) 90 Mcg/Act Aer 2 Puff INH Q4-6H PRN 108 mcg/actuation Reported Seroquel XR (Quetiapine Fumarate) 400 Mg Tab 400 Mg PO HS Seroquel XR (Quetiapine Fumarate) 200 Mg Tab 200 Mg PO DAILY Review of Systems Except as stated in HPI: all other systems reviewed are Neg Psychiatric: Positive: Anxiety, Depression, No: Suicidal Ideations, Homicidal Ideation Physical Exam Narrative GENERAL: Well-developed, well-nourished, alert male. Resting comfortably in no acute distress. SKIN: Warm and dry. HEAD: Atraumatic. Normocephalic. EYES: Pupils equal and round. No scleral icterus. No injection or drainage. ENT: No nasal bleeding or discharge. Mucous membranes pink and moist. NECK: Trachea midline. No JVD. CARDIOVASCULAR: Regular rate and rhythm. RESPIRATORY: No accessory muscle use. Clear to auscultation. Breath sounds equal bilaterally. GASTROINTESTINAL: Abdomen soft, non-tender, nondistended. Hepatic and splenic margins not palpable. MUSCULOSKELETAL: Extremities without clubbing, cyanosis, or edema. No obvious deformities. NEUROLOGICAL: Awake and alert. No obvious cranial nerve deficits. Motor grossly within normal limits. Five out of 5 muscle strength in the arms and legs. Normal speech. PSYCHIATRIC: Depressed mood and affect; insight and judgment normal. Data Data Last Documented VS Vital Signs Date Time Temp Pulse Resp B/P (MAP) Pulse Ox O2 Delivery O2 Flow Rate FiO2 02/23/17 03:35 98.5 90 16 131/85 (100) 99 Room Air Orders Orders Complete Blood Count With Diff (02/23/17 03:57) Comprehensive Metabolic Panel (02/23/17 03:57) Psych Screen (02/23/17 03:57) Drug Screen, Random Urine (02/23/17 03:57) Alcohol (Ethanol) (02/23/17 03:57) Labs Laboratory Tests Test 02/23/17 04:20 White Blood Count 15.4 TH/MM3 Red Blood Count 4.91 MIL/MM3 Hemoglobin 14.5 GM/DL Hematocrit 43.1 % Mean Corpuscular Volume 87.8 FL Mean Corpuscular Hemoglobin 29.5 PG Mean Corpuscular Hemoglobin Concent 33.6 % Red Cell Distribution Width 13.7 % Platelet Count 298 TH/MM3 Mean Platelet Volume 8.2 FL Neutrophils (%) (Auto) 73.8 % Lymphocytes (%) (Auto) 18.8 % Monocytes (%) (Auto) 5.0 % Eosinophils (%) (Auto) 1.3 % Basophils (%) (Auto) 1.1 % Neutrophils # (Auto) 11.4 TH/MM3 Lymphocytes # (Auto) 2.9 TH/MM3 Monocytes # (Auto) 0.8 TH/MM3 Eosinophils # (Auto) 0.2 TH/MM3 Basophils # (Auto) 0.2 TH/MM3 CBC Comment DIFF FINAL Differential Comment Blood Urea Nitrogen 9 MG/DL Creatinine 0.92 MG/DL Random Glucose 93 MG/DL Total Protein 7.8 GM/DL Albumin 4.0 GM/DL Calcium Level 9.6 MG/DL Alkaline Phosphatase 108 U/L Aspartate Amino Transf (AST/SGOT) 13 U/L Alanine Aminotransferase (ALT/SGPT) 16 U/L Total Bilirubin 1.1 MG/DL Sodium Level 136 MEQ/L Potassium Level 3.8 MEQ/L Chloride Level 103 MEQ/L Carbon Dioxide Level 27.0 MEQ/L Anion Gap 6 MEQ/L Estimat Glomerular Filtration Rate 85 ML/MIN Ethyl Alcohol Level LESS THAN 3 MG/DL MDM Medical Decision Making Medical Screen Exam Complete: Yes Emergency Medical Condition: Yes Medical Record Reviewed: Yes Interpretation(s) Laboratory Tests Test 02/23/17 04:20 White Blood Count 15.4 TH/MM3 Red Blood Count 4.91 MIL/MM3 Hemoglobin 14.5 GM/DL Hematocrit 43.1 % Mean Corpuscular Volume 87.8 FL Mean Corpuscular Hemoglobin 29.5 PG Mean Corpuscular Hemoglobin Concent 33.6 % Red Cell Distribution Width 13.7 % Platelet Count 298 TH/MM3 Mean Platelet Volume 8.2 FL Neutrophils (%) (Auto) 73.8 % Lymphocytes (%) (Auto) 18.8 % Monocytes (%) (Auto) 5.0 % Eosinophils (%) (Auto) 1.3 % Basophils (%) (Auto) 1.1 % Neutrophils # (Auto) 11.4 TH/MM3 Lymphocytes # (Auto) 2.9 TH/MM3 Monocytes # (Auto) 0.8 TH/MM3 Eosinophils # (Auto) 0.2 TH/MM3 Basophils # (Auto) 0.2 TH/MM3 CBC Comment DIFF FINAL Differential Comment Blood Urea Nitrogen 9 MG/DL Creatinine 0.92 MG/DL Random Glucose 93 MG/DL Total Protein 7.8 GM/DL Albumin 4.0 GM/DL Calcium Level 9.6 MG/DL Alkaline Phosphatase 108 U/L Aspartate Amino Transf (AST/SGOT) 13 U/L Alanine Aminotransferase (ALT/SGPT) 16 U/L Total Bilirubin 1.1 MG/DL Sodium Level 136 MEQ/L Potassium Level 3.8 MEQ/L Chloride Level 103 MEQ/L Carbon Dioxide Level 27.0 MEQ/L Anion Gap 6 MEQ/L Estimat Glomerular Filtration Rate 85 ML/MIN Ethyl Alcohol Level LESS THAN 3 MG/DL Vital Signs Date Time Temp Pulse Resp B/P (MAP) Pulse Ox O2 Delivery O2 Flow Rate FiO2 02/23/17 03:35 98.5 90 16 131/85 (100) 99 Room Air Differential Diagnosis Mood disorder versus substance abuse versus anxiety versus malingering versus other Narrative Course Patient presented voluntarily for psychiatric evaluation. Patient's vital signs are stable, he is cooperative and calm in the emergency department. Mental health screening discussed with the patient. Psychiatric screen ordered. CBC with mild leukocytosis, patient is afebrile with no signs of infection. Chemistry reviewed, no acute abnormalities identified Alcohol level is normal Patient is medically clear for psychiatric evaluation at this time. Diagnosis Primary Impression: Medical clearance for psychiatric admission Condition: Stable RogerSonaliSabi [employer]ATING MACHINE T[employer]IST Feb 23, 2017 04:16
[2017-02-23 04:27] LABS: AUTOMATED NEUTROPHIL # 11.4 TH/MM3 (1.8-7.7); BASOPHIL # 0.2 TH/MM3 (0-0.2); BASOPHIL % 1.1 % (0.0-2.0); EOSINOPHIL # 0.2 TH/MM3 (0-0.4); EOSINOPHIL % 1.3 % (0.0-4.0); HEMATOCRIT 43.1 % (39.0-51.0); HEMO FLAGS DIFF FINAL; LYMPH % 18.8 % (9.0-44.0); LYMPHOCYTE # 2.9 TH/MM3 (1.0-4.8); MEAN CELL VOLUME 87.8 FL (80.0-100.0); MEAN CORPUSCULAR HEMOGLOBIN 29.5 PG (27.0-34.0); MEAN CORPUSCULAR HGB CONC 33.6 % (32.0-36.0); NEUT % 73.8 % (16.0-70.0); PLATELET COUNT 298 TH/MM3 (150-450); RED BLOOD COUNT 4.91 MIL/MM3 (4.50-5.90); RED CELL DISTRIBUTION WIDTH 13.7 % (11.6-17.2); WHITE BLOOD COUNT 15.4 TH/MM3 (4.0-11.0)
[2017-02-23 04:48] LABS: ANION GAP 6 MEQ/L (5-15); AST (GOT) 13 U/L (15-37); BLOOD UREA NITROGEN 9 MG/DL (7-18); CHLORIDE 103 MEQ/L (98-107); GLOMERULAR FILTRATION RATE 85 ML/MIN (>89); POTASSIUM 3.8 MEQ/L (3.5-5.1); SODIUM (NA) 136 MEQ/L (136-145)
[2017-02-23 04:49] LABS: ALT (GPT) 16 U/L (12-78)
[2017-02-23 04:50] LABS: ALCOHOL LESS THAN 3 MG/DL (0-5)
[2017-02-23 04:51] LABS: ALKALINE PHOSPHATASE 108 U/L (45-117); TOTAL BILIRUBIN ADULT 1.1 MG/DL (0.2-1.0)
[2017-02-23 07:15] VITALS: BP 134/78; PULSE 75; RESP 16; TEMP 98.3; O2SAT 97
[2017-02-23 09:18] VITALS: BP 130/78; PULSE 71; RESP 16; O2SAT 99
== END 2017-02-23 10:22 | disposition left against medical advice (07) ==
LOC: NEPD 03:34
DX: F31.9 Bipolar disorder, unspecified (principal); Z79.899 Other long term (current) drug therapy
CPT/HCPCS: 80053; 80307; 85025; 99283